=== PATIENT | male | born 1960 | race African-American/Black ===

== ENCOUNTER 2020-01-09 20:29 | Inpatient (IN) | payer OTHER ==
[~2020-01-09] VITALS: Ht 176.5 cm; Wt 114.8 kg
[2020-01-09] MEDS ORDERED: LABETALOL 5MG/ML SYR 20 MG/4 ML SYRINGE IV ONE (22:30)
[2020-01-09 22:39] LABS: HEMATOCRIT. 40.7 % (42.0-52.0); HEMOGLOBIN. 13.5 g/dL (14.0-18.0); MEAN CORPUSCULAR HEMOGLOBIN 25.7 pg (28.0-32.0); MEAN CORPUSCULAR VOLUME 77.3 fL (80.0-94.0); MEAN PLATELET VOLUME 8.2 fl (7.4-10.4); PLATELET 295 x1000/uL (130-400); RED BLOOD CELL COUNT 5.26 mill/uL (4.7-6.1)
[2020-01-09 22:46] LABS: CHLORIDE 95 mEq/L (98-107)
[2020-01-09 22:49] LABS: INR 1.1; PROTHROMBIN TIME 11.2 sec (9.6-11.0)
[2020-01-09 22:51] LABS: ETHANOL BLOOD < 10 mg/dL
[2020-01-09 22:55] LABS: CREATINE KINASE 89 IU/L (39-308)
[2020-01-09 22:58] LABS: PLATELET ESTIMATE NORMAL
[2020-01-09] MEDS ORDERED: INSULIN REGULAR (HUMULIN R) UD 100 UNITS/ML SYR IV ONE (23:45)
[2020-01-09] MEDS ORDERED: KCL 20MEQ/100ML PREMIX 100 ML IV ONE (23:45)
[2020-01-09] MEDS ORDERED: SODIUM CHLORIDE 0.9% 1,000 ML IV ONE (23:45)
[2020-01-09] MEDS ORDERED: INSULIN REGULAR (HUMULIN R) 300UNITS/3ML IV NR (23:45)
[2020-01-10] VITALS (58 sets, daily range): BP systolic 104–188; BP diastolic 29–108
[2020-01-10 01:48] LABS: CLARITY URINE CLEAR (CLEAR); COLOR URINE YELLOW (YELLOW); KETONES URINE 1+ (NEGATIVE); LEUKOCYTE ESTERASE URINE NEGATIVE (NEGATIVE); NITRITE URINE NEGATIVE (NEGATIVE); OCCULT BLOOD URINE 2+ (NEGATIVE); PROTEIN URINE 3+ (NEGATIVE); SPECIFIC GRAVITY URINE 1.037 (1.005-1.030)
[2020-01-10 01:55] LABS: *AMPHETAMINES SCREEN URINE NEGATIVE (NEGATIVE); *BARBITURATES SCREEN URINE NEGATIVE (NEGATIVE); CANNABINOID URINE SCREEN PRESUMTIVE POSITIVE (NEGATIVE); PHENCYCLIDINE URINE SCREEN NEGATIVE (NEGATIVE)
[2020-01-10 01:56] LABS: *BENZODIAZEPINES SCREEN URINE NEGATIVE (NEGATIVE); *COCAINE SCREEN URINE NEGATIVE (NEGATIVE); METHADONE URINE SCREEN NEGATIVE (NEGATIVE); OPIATES URINE SCREEN PRESUMTIVE POSITIVE (NEGATIVE)
[2020-01-10] MEDS ORDERED: ONDANSETRON HCL 4MG/2ML INJ IV PRN (04:45)
[2020-01-10] MEDS ORDERED: CEFTRIAXONE 1 G PREMIX 50 ML IV SCH (04:45)
[2020-01-10] MEDS ORDERED: DEXTROSE 50% WATER 50ML SYRINGE IV PRN (05:00)
[2020-01-10] MEDS: ACETAMINOPHEN 325MG TABLET PO PRN ×2 (05:18→20:25)
[2020-01-10] MEDS: CLONIDINE 0.1MG TABLET PO PRN ×2 (05:19→16:17)
[2020-01-10] MEDS ORDERED: DOXA1TAB PO (05:36)
[2020-01-10] MEDS ORDERED: LISI-604 PO (05:36)
[2020-01-10] MEDS ORDERED: INSLIS SUBCUT (05:37)
[2020-01-10] MEDS ORDERED: ADENOSINE 3 MG/ML 2ML VIAL IV SCH (06:30)
[2020-01-10] MEDS ORDERED: DILTIAZEM HCL 5MG/ML 5ML VIAL IV ONE ×2 (06:45→08:30)
[2020-01-10] MEDS: BLOOD SUGAR DIAGNOSTIC STRIP TEST SCH ×4 (07:13→21:00)
[2020-01-10] MEDS: INSULIN LISPRO 100 UNITS/ML SUBCUT SCH ×4 (07:17→22:32)
[2020-01-10 08:54] LABS: BASOPHILS % 0.6 % (0.0-2.0); HEMOGLOBIN. 12.9 g/dL (14.0-18.0); LYMPHOCYTES % 13.6 % (20.0-50.0); MEAN CORPUSCULAR HEMOGLOBIN 25.9 pg (28.0-32.0); MEAN CORPUSCULAR VOLUME 76.5 fL (80.0-94.0); MEAN PLATELET VOLUME 8.1 fl (7.4-10.4); NEUTROPHILS % 75.8 % (40.0-76.0); PLATELET 293 x1000/uL (130-400); RED BLOOD CELL COUNT 4.96 mill/uL (4.7-6.1); RED CELL DISTRIBUTION WIDTH 15.8 % (11.6-14.6)
[2020-01-10] MEDS ORDERED: LISINOPRIL 20MG TABLET PO SCH (09:00)
[2020-01-10] MEDS ORDERED: AMLODIPINE 10MG TABLET PO SCH (09:00)
[2020-01-10 09:03] LABS: CHLORIDE 102 mEq/L (98-107)
[2020-01-10 09:10] LABS: LDL CHOLESTEROL 58 mg/dL (5-100)
[2020-01-10 09:11] LABS: HDL CHOLESTEROL 37 mg/dL (40-59)
[2020-01-10] MEDS: ENOXAPARIN 30MG/0.3ML SYR SUBCUT SCH ×2 (10:52→20:25)
[2020-01-10] MEDS: CEFTRIAXONE 1,000 MG in DEXTROSE 5% WATER 50 ML IV SCH (11:49)
[2020-01-10] MEDS: INSULIN GLARGINE UD 100 UNITS/ML SYR SUBCUT SCH ×2 (11:50→22:32)
[2020-01-10] MEDS ORDERED: DILTIAZEM HCL 60MG TABLET PO SCH (12:00)
[2020-01-10] MEDS: DILTIAZEM HCL 90MG TABLET PO SCH ×2 (12:34→18:02)
[2020-01-10] MEDS ORDERED: HYDRALAZINE HCL 100MG TABLET PO NR (18:00)
[2020-01-10] MEDS ORDERED: DILTIAZEM HCL 5MG/ML 5ML VIAL IV NR (19:19)
[2020-01-10] MEDS: DILTIAZEM HCL 125 MG in DEXT 5% WATER 100 ML IV PRN (20:12)
[2020-01-10] MEDS: ATORVASTATIN CALCIUM 40MG TABLET PO SCH (20:25)
[2020-01-10] MEDS: HYDROCODONE/ACETAMINOPHEN 5/325MG TABLET PO PRN (21:05)
[2020-01-10] MEDS: HYDRALAZINE HCL 100MG TABLET PO SCH (22:08)
[2020-01-11] VITALS (67 sets, daily range): BP systolic 93–187; BP diastolic 54–123
[2020-01-11] MEDS: DILTIAZEM HCL 90MG TABLET PO SCH ×5 (00:22→23:24)
[2020-01-11] MEDS: DILTIAZEM HCL 125 MG in DEXT 5% WATER 100 ML IV PRN ×2 (04:02→18:00)
[2020-01-11 05:58] LABS: BASOPHILS % 0.2 % (0.0-2.0); EOSINOPHILS % 0.3 % (0.0-5.0); HEMATOCRIT. 38.6 % (42.0-52.0); HEMOGLOBIN. 12.7 g/dL (14.0-18.0); MEAN CORPUSCULAR HEMOGLOBIN 25.4 pg (28.0-32.0); MEAN CORPUSCULAR VOLUME 77.4 fL (80.0-94.0); MEAN PLATELET VOLUME 8.4 fl (7.4-10.4); MONOCYTES % 11.3 % (2.0-8.0); NEUTROPHILS % 71.2 % (40.0-76.0); PLATELET 280 x1000/uL (130-400); RED BLOOD CELL COUNT 4.99 mill/uL (4.7-6.1); RED CELL DISTRIBUTION WIDTH 15.8 % (11.6-14.6)
[2020-01-11 06:01] LABS: CHLORIDE 98 mEq/L (98-107)
[2020-01-11] MEDS: BLOOD SUGAR DIAGNOSTIC STRIP TEST SCH ×4 (06:49→21:32)
[2020-01-11] MEDS: INSULIN LISPRO 100 UNITS/ML SUBCUT SCH ×4 (06:54→21:48)
[2020-01-11] MEDS: ENOXAPARIN 30MG/0.3ML SYR SUBCUT SCH (09:28)
[2020-01-11] MEDS: LISINOPRIL 40MG TABLET PO SCH (09:28)
[2020-01-11] MEDS: HYDRALAZINE HCL 100MG TABLET PO SCH ×3 (09:28→21:46)
[2020-01-11] MEDS: CEFTRIAXONE 1,000 MG in DEXTROSE 5% WATER 50 ML IV SCH (09:57)
[2020-01-11] MEDS ORDERED: LACTULOSE 20G/30ML UDC PO SCH (10:45)
[2020-01-11] MEDS: INSULIN GLARGINE UD 100 UNITS/ML SYR SUBCUT SCH ×2 (11:30→21:49)
[2020-01-11] MEDS: DOCUSATE SODIUM 100MG CAPSULE PO SCH ×2 (11:32→16:25)
[2020-01-11] MEDS: APIXABAN 5 MG TABLET PO SCH (16:25)
[2020-01-11] MEDS: ACETAMINOPHEN 325MG TABLET PO PRN ×2 (16:38→23:24)
[2020-01-11] MEDS: DIGOXIN 125MCG TABLET PO SCH (18:00)
[2020-01-11] MEDS ORDERED: DILTIAZEM HCL 5MG/ML 5ML VIAL IV PRN (19:15)
[2020-01-11] MEDS: BISACODYL 10MG SUPP PR PRN (19:29)
[2020-01-11] MEDS ORDERED: DILTIAZEM HCL 5MG/ML 5ML VIAL IV SCH (20:00)
[2020-01-11] MEDS: ATORVASTATIN CALCIUM 40MG TABLET PO SCH (21:46)
[2020-01-12] VITALS (78 sets, daily range): BP systolic 103–184; BP diastolic 50–119
[2020-01-12] MEDS: DILTIAZEM HCL 125 MG in DEXT 5% WATER 100 ML IV PRN (01:08)
[2020-01-12 05:40] LABS: BASOPHILS % 0.1 % (0.0-2.0); HEMATOCRIT. 37.5 % (42.0-52.0); HEMOGLOBIN. 12.6 g/dL (14.0-18.0); LYMPHOCYTES % 14.2 % (20.0-50.0); MEAN CORPUSCULAR HEMOGLOBIN 25.7 pg (28.0-32.0); MEAN CORPUSCULAR VOLUME 76.7 fL (80.0-94.0); MONOCYTES % 10.7 % (2.0-8.0); PLATELET 298 x1000/uL (130-400); RED BLOOD CELL COUNT 4.89 mill/uL (4.7-6.1); RED CELL DISTRIBUTION WIDTH 16.2 % (11.6-14.6)
[2020-01-12 05:51] LABS: CHLORIDE 97 mEq/L (98-107)
[2020-01-12] MEDS: HYDRALAZINE HCL 100MG TABLET PO SCH ×3 (06:42→22:24)
[2020-01-12] MEDS: DILTIAZEM HCL 90MG TABLET PO SCH (06:43)
[2020-01-12] MEDS: BLOOD SUGAR DIAGNOSTIC STRIP TEST SCH ×4 (06:54→21:00)
[2020-01-12] MEDS: INSULIN LISPRO 100 UNITS/ML SUBCUT SCH ×4 (07:02→22:25)
[2020-01-12] MEDS: CEFTRIAXONE 1,000 MG in DEXTROSE 5% WATER 50 ML IV SCH (09:11)
[2020-01-12] MEDS: DOCUSATE SODIUM 100MG CAPSULE PO SCH ×2 (09:11→16:43)
[2020-01-12] MEDS: APIXABAN 5 MG TABLET PO SCH ×2 (09:11→16:43)
[2020-01-12] MEDS: LISINOPRIL 40MG TABLET PO SCH (09:12)
[2020-01-12] MEDS: INSULIN GLARGINE UD 100 UNITS/ML SYR SUBCUT SCH ×2 (09:16→22:32)
[2020-01-12] MEDS ORDERED: METFORMIN HCL 500MG TABLET PO NR (10:45)
[2020-01-12] MEDS ORDERED: NA PHOS,M-B/NA PHOS,DI-BA ENEMA 118ML PR NR (11:00)
[2020-01-12] MEDS: ESMOLOL 2500MG PREMIX 250 ML IV SCH ×2 (11:17→19:34)
[2020-01-12] MEDS: OMEPRAZOLE 20MG CAPSULE EXTENDED RELEASE PO SCH (16:44)
[2020-01-12] MEDS: DIGOXIN 125MCG TABLET PO SCH (18:00)
[2020-01-12] MEDS: SODIUM CHLORIDE 0.9% 1,000 ML IV SCH (18:00)
[2020-01-12] MEDS: METFORMIN HCL 500MG TABLET PO SCH (18:03)
[2020-01-12] MEDS: ATORVASTATIN CALCIUM 40MG TABLET PO SCH (22:24)
[2020-01-13] VITALS (50 sets, daily range): BP systolic 90–204; BP diastolic 41–95
[2020-01-13] MEDS: ESMOLOL 2500MG PREMIX 250 ML IV SCH ×3 (00:46→22:03)
[2020-01-13] MEDS: HYDROCODONE/ACETAMINOPHEN 5/325MG TABLET PO PRN (02:57)
[2020-01-13 06:23] LABS: BASOPHILS % 0.5 % (0.0-2.0); EOSINOPHILS % 0.3 % (0.0-5.0); HEMATOCRIT. 35.9 % (42.0-52.0); HEMOGLOBIN. 11.9 g/dL (14.0-18.0); LYMPHOCYTES % 17.4 % (20.0-50.0); MEAN CORPUSCULAR HEMOGLOBIN 25.3 pg (28.0-32.0); MEAN CORPUSCULAR VOLUME 76.7 fL (80.0-94.0); MEAN PLATELET VOLUME 8.1 fl (7.4-10.4); MONOCYTES % 12.6 % (2.0-8.0); NEUTROPHILS % 69.2 % (40.0-76.0); PLATELET 359 x1000/uL (130-400); RED BLOOD CELL COUNT 4.68 mill/uL (4.7-6.1); RED CELL DISTRIBUTION WIDTH 15.8 % (11.6-14.6)
[2020-01-13 06:29] LABS: CHLORIDE 98 mEq/L (98-107)
[2020-01-13] MEDS: HYDRALAZINE HCL 100MG TABLET PO SCH ×3 (06:41→22:00)
[2020-01-13] MEDS: BLOOD SUGAR DIAGNOSTIC STRIP TEST SCH ×4 (07:50→22:01)
[2020-01-13] MEDS: OMEPRAZOLE 20MG CAPSULE EXTENDED RELEASE PO SCH (08:52)
[2020-01-13] MEDS: SODIUM CHLORIDE 0.9% 1,000 ML IV SCH ×2 (08:52→11:11)
[2020-01-13] MEDS: BISACODYL 10MG SUPP PR PRN (08:52)
[2020-01-13] MEDS: METFORMIN HCL 500MG TABLET PO SCH ×2 (08:53→18:40)
[2020-01-13] MEDS: DOCUSATE SODIUM 100MG CAPSULE PO SCH ×2 (08:53→18:43)
[2020-01-13] MEDS: LISINOPRIL 40MG TABLET PO SCH (08:53)
[2020-01-13] MEDS: INSULIN LISPRO 100 UNITS/ML SUBCUT SCH ×4 (08:55→21:00)
[2020-01-13] MEDS: INSULIN GLARGINE UD 100 UNITS/ML SYR SUBCUT SCH ×2 (08:56→22:08)
[2020-01-13] MEDS: APIXABAN 5 MG TABLET PO SCH ×2 (08:59→18:40)
[2020-01-13] MEDS: CEFTRIAXONE 1,000 MG in DEXTROSE 5% WATER 50 ML IV SCH (08:59)
[2020-01-13] MEDS ORDERED: NA PHOS,M-B/NA PHOS,DI-BA ENEMA 118ML PR PRN (12:00)
[2020-01-13] MEDS ORDERED: LACTULOSE 20G/30ML UDC PO NR (12:00)
[2020-01-13] MEDS: LEVOFLOXACIN 500MG PREMIX 100 ML IV SCH (15:28)
[2020-01-13] MEDS: DIGOXIN 125MCG TABLET PO SCH (18:40)
[2020-01-13] MEDS: ATORVASTATIN CALCIUM 40MG TABLET PO SCH (22:06)
[2020-01-14] VITALS (39 sets, daily range): BP systolic 82–159; BP diastolic 37–90
[2020-01-14] MEDS: ESMOLOL 2500MG PREMIX 250 ML IV SCH ×3 (03:01→21:16)
[2020-01-14] MEDS: HYDROCODONE/ACETAMINOPHEN 5/325MG TABLET PO PRN ×4 (03:51→23:12)
[2020-01-14] MEDS: SODIUM CHLORIDE 0.9% 1,000 ML IV SCH (04:30)
[2020-01-14 05:00] LABS: HEMATOCRIT 37.5 % (42.0-52.0); HEMOGLOBIN 12.4 g/dL (14.0-18.0); MEAN CORPUSCULAR HEMOGLOBIN 25.4 pg (28.0-32.0); PLATELET 339 x1000/uL (130-400); RED BLOOD CELL COUNT 4.87 mill/uL (4.7-6.1); RED CELL DISTRIBUTION WIDTH 15.8 % (11.6-14.6)
[2020-01-14 05:35] LABS: CHLORIDE 98 mEq/L (98-107)
[2020-01-14] MEDS: HYDRALAZINE HCL 100MG TABLET PO SCH ×3 (06:24→21:45)
[2020-01-14] MEDS: BLOOD SUGAR DIAGNOSTIC STRIP TEST SCH ×4 (08:15→21:00)
[2020-01-14] MEDS: INSULIN LISPRO 100 UNITS/ML SUBCUT SCH ×4 (08:16→21:00)
[2020-01-14] MEDS: APIXABAN 5 MG TABLET PO SCH ×2 (08:23→17:30)
[2020-01-14] MEDS: DOCUSATE SODIUM 100MG CAPSULE PO SCH ×2 (08:23→17:30)
[2020-01-14] MEDS: METFORMIN HCL 500MG TABLET PO SCH ×2 (08:23→17:30)
[2020-01-14] MEDS: LISINOPRIL 40MG TABLET PO SCH (08:23)
[2020-01-14] MEDS: OMEPRAZOLE 20MG CAPSULE EXTENDED RELEASE PO SCH (08:23)
[2020-01-14] MEDS: INSULIN GLARGINE UD 100 UNITS/ML SYR SUBCUT SCH ×2 (10:03→21:38)
[2020-01-14] MEDS: LEVOFLOXACIN 500MG PREMIX 100 ML IV SCH (12:41)
[2020-01-14] MEDS: DIGOXIN 125MCG TABLET PO SCH (17:30)
[2020-01-14 18:04] LABS: T4 FREE 1.66 ng/dL (0.76-1.46)
[2020-01-14] MEDS: ATORVASTATIN CALCIUM 40MG TABLET PO SCH (21:02)
[2020-01-14] MEDS: DEXT 5%/0.9% NACL 1,000 ML IV SCH (23:08)
[2020-01-15] VITALS (38 sets, daily range): BP systolic 102–188; BP diastolic 30–122
[2020-01-15] MEDS: ESMOLOL 2500MG PREMIX 250 ML IV SCH ×2 (04:28→11:15)
[2020-01-15 05:44] LABS: HEMATOCRIT 35.1 % (42.0-52.0); HEMOGLOBIN 11.7 g/dL (14.0-18.0); MEAN CORPUSCULAR HEMOGLOBIN 25.4 pg (28.0-32.0); MEAN CORPUSCULAR VOLUME 76.1 fL (80.0-94.0); PLATELET 392 x1000/uL (130-400); RED BLOOD CELL COUNT 4.62 mill/uL (4.7-6.1); RED CELL DISTRIBUTION WIDTH 15.3 % (11.6-14.6)
[2020-01-15 05:49] LABS: CHLORIDE 103 mEq/L (98-107)
[2020-01-15] MEDS: HYDRALAZINE HCL 100MG TABLET PO SCH ×3 (06:00→21:34)
[2020-01-15] MEDS: BLOOD SUGAR DIAGNOSTIC STRIP TEST SCH ×3 (07:50→21:24)
[2020-01-15] MEDS: OMEPRAZOLE 20MG CAPSULE EXTENDED RELEASE PO SCH (07:50)
[2020-01-15] MEDS: METFORMIN HCL 500MG TABLET PO SCH (08:20)
[2020-01-15] MEDS: INSULIN LISPRO 100 UNITS/ML SUBCUT SCH ×4 (08:20→21:00)
[2020-01-15] MEDS: APIXABAN 5 MG TABLET PO SCH (09:00)
[2020-01-15] MEDS: LISINOPRIL 40MG TABLET PO SCH (09:28)
[2020-01-15] MEDS: DOCUSATE SODIUM 100MG CAPSULE PO SCH ×2 (09:28→20:19)
[2020-01-15] MEDS: HYDROCODONE/ACETAMINOPHEN 5/325MG TABLET PO PRN ×3 (09:29→20:32)
[2020-01-15] MEDS: INSULIN GLARGINE UD 100 UNITS/ML SYR SUBCUT SCH ×2 (10:00→22:58)
[2020-01-15] MEDS: LEVOFLOXACIN 500MG TABLET PO SCH (12:10)
[2020-01-15] MEDS ORDERED: LIDOCAINE HCL 1% 20ML VIAL (Pyxis) INJ ONE (15:10)
[2020-01-15] MEDS ORDERED: HEPARIN 1,000 UNITS PREMIX 1,500 ML IV ONE (15:11)
[2020-01-15] MEDS ORDERED: PROPOFOL 200MG/20ML VIAL IV ONE (15:21)
[2020-01-15] MEDS ORDERED: FENTANYL CITRATE/PF 50MCG/ML 2ML VIAL ONE (15:21)
[2020-01-15] MEDS ORDERED: MIDAZOLAM HCL 2 MG/2 ML VIAL ONE (15:21)
[2020-01-15] MEDS ORDERED: PHENYLEPHRINE HCL 10 MG/ML 1ML (IV VIAL) IV ONE (15:21)
[2020-01-15] MEDS ORDERED: SUCCINYLCHOLINE CHLORIDE 200MG/10ML IV ONE (15:21)
[2020-01-15] MEDS ORDERED: CEFAZOLIN SODIUM 1000MG/VIAL ONE (15:21)
[2020-01-15] MEDS ORDERED: ROCURONIUM BROMIDE 10MG/ML VIAL 5ML IV ONE ×2 (15:21→15:25)
[2020-01-15] MEDS ORDERED: NEOSTIGMINE METHYLSULFATE 1MG/ML 10 ML VIAL ONE (15:21)
[2020-01-15] MEDS ORDERED: ONDANSETRON HCL 4MG/2ML INJ ONE (15:21)
[2020-01-15] MEDS ORDERED: METOCLOPRAMIDE HCL 10MG/2ML VIAL ONE (15:21)
[2020-01-15] MEDS ORDERED: SODIUM CHLORIDE 0.9% 10ML VIAL ONE (15:21)
[2020-01-15] MEDS ORDERED: GLYCOPYRROLATE 0.2 MG/ML 2ML VIAL ONE (15:21)
[2020-01-15] MEDS ORDERED: EPHEDRINE SULFATE 50MG/ML VIAL ONE (15:21)
[2020-01-15] MEDS ORDERED: ATROPINE SULFATE 1MG/10ML SYR IV PRN (17:45)
[2020-01-15] MEDS: DEXT 5%/0.9% NACL 1,000 ML IV SCH (20:00)
[2020-01-15] MEDS: ATORVASTATIN CALCIUM 40MG TABLET PO SCH (20:29)
[2020-01-16] VITALS (47 sets, daily range): BP systolic 112–165; BP diastolic 50–114
[2020-01-16 06:10] LABS: BASOPHILS % 0.4 % (0.0-2.0); EOSINOPHILS % 0.5 % (0.0-5.0); HEMATOCRIT. 35.5 % (42.0-52.0); HEMOGLOBIN. 11.7 g/dL (14.0-18.0); LYMPHOCYTES % 25.6 % (20.0-50.0); MEAN CORPUSCULAR HEMOGLOBIN 25.5 pg (28.0-32.0); MEAN CORPUSCULAR VOLUME 77.3 fL (80.0-94.0); MEAN PLATELET VOLUME 7.9 fl (7.4-10.4); MONOCYTES % 9.2 % (2.0-8.0); NEUTROPHILS % 64.3 % (40.0-76.0); PLATELET 410 x1000/uL (130-400); RED BLOOD CELL COUNT 4.59 mill/uL (4.7-6.1); RED CELL DISTRIBUTION WIDTH 15.7 % (11.6-14.6)
[2020-01-16] MEDS: HYDRALAZINE HCL 100MG TABLET PO SCH ×3 (06:14→21:25)
[2020-01-16] MEDS: BLOOD SUGAR DIAGNOSTIC STRIP TEST SCH ×4 (07:33→21:00)
[2020-01-16] MEDS: INSULIN LISPRO 100 UNITS/ML SUBCUT SCH ×4 (07:33→21:47)
[2020-01-16 07:36] LABS: CHLORIDE 104 mEq/L (98-107)
[2020-01-16 07:49] LABS: T4 FREE 1.81 ng/dL (0.76-1.46)
[2020-01-16] MEDS: APIXABAN 5 MG TABLET PO SCH ×2 (08:58→18:02)
[2020-01-16] MEDS: OMEPRAZOLE 20MG CAPSULE EXTENDED RELEASE PO SCH (08:59)
[2020-01-16] MEDS: LISINOPRIL 40MG TABLET PO SCH (08:59)
[2020-01-16] MEDS: METFORMIN HCL 500MG TABLET PO SCH ×2 (08:59→18:02)
[2020-01-16] MEDS: DOCUSATE SODIUM 100MG CAPSULE PO SCH ×2 (08:59→18:02)
[2020-01-16] MEDS: INSULIN GLARGINE UD 100 UNITS/ML SYR SUBCUT SCH ×3 (09:03→21:41)
[2020-01-16] MEDS: DEXT 5%/0.9% NACL 1,000 ML IV SCH (09:03)
[2020-01-16 09:07] LABS: FOLIC ACID (FOLATE) SERUM 7.4 ng/mL (>5.38)
[2020-01-16] MEDS ORDERED: LIDOCAINE HCL/PF 1% 2ML VIAL ONE (09:31)
[2020-01-16] MEDS: LEVOFLOXACIN 500MG TABLET PO SCH (12:07)
[2020-01-16] MEDS ORDERED: BLOO-1465 MT (12:15)
[2020-01-16] MEDS ORDERED: OMEP40CA12 MT (12:15)
[2020-01-16] MEDS ORDERED: ALBU90AE INH (12:15)
[2020-01-16] MEDS ORDERED: INSU100I28 SQ (12:15)
[2020-01-16] MEDS ORDERED: LISI40TA4 MT (12:15)
[2020-01-16] MEDS ORDERED: LEVO500T2 MT (12:15)
[2020-01-16] MEDS ORDERED: METF-414 MT (12:15)
[2020-01-16] MEDS ORDERED: [UNRECOGNIZED DRUG - CODE] MC (12:15)
[2020-01-16] MEDS ORDERED: APIX5TAB MT (12:15)
[2020-01-16] MEDS ORDERED: LANC1COM2 MC (12:15)
[2020-01-16] MEDS ORDERED: LIP40 MT (12:15)
[2020-01-16] MEDS ORDERED: INSLIS SUBCUT (12:15)
[2020-01-16 15:36] LABS: BG BASE EXCESS -0.7 mmol/L (-2.0-2.0); BG CARBOXYHEMOGLOBIN 0.5 % (0.5-1.5); BG DEOXYHEMOGLOBIN 3.6 % (0.0-5.0); BG FRACTION INSPIRED OXYGEN 21; BG HCO3 ACT 22.9 mmol/L (22.0-26.0); BG METHEMOGLOBIN 0.2 % (0.0-1.5); BG OXYGEN SATURATION 96.4 % (92.0-98.5); BG OXYHEMOGLOBIN 95.7 % (94.0-97.0); BG PCO2 34.2 mmHg (35.0-45.0); BG PH 7.443 (7.350-7.450); BG PO2 80.6 mmHg (75.0-100.0); BG SAMPLE SITE RIGHT RADIAL; BG TOTAL HEMOGLOBIN 13.1 g/dL (12.0-18.0); BG VENT MODE ROOM AIR
[2020-01-16] MEDS: METOPROLOL TARTRATE 50MG TABLET PO SCH (18:03)
[2020-01-16] MEDS: ATORVASTATIN CALCIUM 40MG TABLET PO SCH (21:24)
[2020-01-16] MEDS: BISACODYL 10MG SUPP PR PRN (21:51)
[2020-01-17] VITALS (33 sets, daily range): BP systolic 104–179; BP diastolic 50–108
[2020-01-17 04:08] LABS: THYROID PEROXIDASE ANTIBODY < 9 IU/mL (0-34); VITAMIN D 25-OH 24.3 ng/mL (30.0-100.0)
[2020-01-17 05:44] LABS: CHLORIDE 104 mEq/L (98-107); HEMATOCRIT 34.6 % (42.0-52.0); HEMOGLOBIN 11.4 g/dL (14.0-18.0); MEAN CORPUSCULAR HEMOGLOBIN 25.1 pg (28.0-32.0); MEAN CORPUSCULAR VOLUME 76.2 fL (80.0-94.0); PLATELET 442 x1000/uL (130-400); RED BLOOD CELL COUNT 4.55 mill/uL (4.7-6.1); RED CELL DISTRIBUTION WIDTH 15.5 % (11.6-14.6)
[2020-01-17 05:50] LABS: PHOSPHORUS 3.3 mg/dL (2.5-4.9)
[2020-01-17] MEDS: HYDRALAZINE HCL 100MG TABLET PO SCH ×2 (05:57→13:02)
[2020-01-17] MEDS: BLOOD SUGAR DIAGNOSTIC STRIP TEST SCH ×2 (07:00→12:57)
[2020-01-17] MEDS: INSULIN LISPRO 100 UNITS/ML SUBCUT SCH ×2 (07:54→13:02)
[2020-01-17] MEDS: LISINOPRIL 40MG TABLET PO SCH (09:10)
[2020-01-17] MEDS: METFORMIN HCL 500MG TABLET PO SCH (09:10)
[2020-01-17] MEDS: APIXABAN 5 MG TABLET PO SCH (09:10)
[2020-01-17] MEDS: DOCUSATE SODIUM 100MG CAPSULE PO SCH (09:10)
[2020-01-17] MEDS: METOPROLOL TARTRATE 50MG TABLET PO SCH (09:11)
[2020-01-17] MEDS: OMEPRAZOLE 20MG CAPSULE EXTENDED RELEASE PO SCH (09:11)
[2020-01-17] MEDS: LEVOFLOXACIN 500MG TABLET PO SCH (11:32)
[2020-01-17] MEDS ORDERED: LACT10SO7 MT (12:38)
[2020-01-17] MEDS ORDERED: METO-539 MT (12:38)
[2020-01-17] MEDS ORDERED: TRAM50TA94 MT (12:38)
== END 2020-01-17 16:00 | disposition expired | DRG 720 ==
LOC: ER 20:29 → EDBD 20:29 → 5WST 01-10 01:30 → EDBEDREQ 01-10 01:35 → EDBEDREQDT 01-10 01:35 → EDBEDREQTM 01-10 01:35 → ENRESERV 01-10 02:20 → CVICU 01-10 08:58
PROVIDERS: ADMIT Internal Medicine; ATTEND Internal Medicine
DX: A41.9 Sepsis, unspecified organism (principal); I11.0 Hypertensive heart disease with heart failure; I50.33 Acute on chronic diastolic (congestive) heart failure; E11.65 Type 2 diabetes mellitus with hyperglycemia; E66.9 Obesity, unspecified; N39.0 Urinary tract infection, site not specified; D68.59 Other primary thrombophilia; E44.0 Moderate protein-calorie malnutrition; I47.1 Supraventricular tachycardia; E78.5 Hyperlipidemia, unspecified; E87.1 Hypo-osmolality and hyponatremia; I82.402 Acute embolism and thrombosis of unspecified deep veins of left lower extremity; D64.9 Anemia, unspecified; B96.89 Other specified bacterial agents as the cause of diseases classified elsewhere; B96.1 Klebsiella pneumoniae [K. pneumoniae] as the cause of diseases classified elsewhere; G40.909 Epilepsy, unspecified, not intractable, without status epilepticus; E87.8 Other disorders of electrolyte and fluid balance, not elsewhere classified; F12.90 Cannabis use, unspecified, uncomplicated; E78.00 Pure hypercholesterolemia, unspecified; K56.41 Fecal impaction; B35.1 Tinea unguium; M54.9 Dorsalgia, unspecified; I48.20 Chronic atrial fibrillation, unspecified; R06.03 Acute respiratory distress; F14.10 Cocaine abuse, uncomplicated; Z20.828 Contact with and (suspected) exposure to other viral communicable diseases; F99 Mental disorder, not otherwise specified; R94.6 Abnormal results of thyroid function studies; E05.90 Thyrotoxicosis, unspecified without thyrotoxic crisis or storm; Z86.718 Personal history of other venous thrombosis and embolism; Z68.36 Body mass index [BMI] 36.0-36.9, adult; Z87.891 Personal history of nicotine dependence; Z79.01 Long term (current) use of anticoagulants; Z91.14 Patient's other noncompliance with medication regimen; Z79.4 Long term (current) use of insulin; Z79.899 Other long term (current) drug therapy; E11.00 Type 2 diabetes mellitus with hyperosmolarity without nonketotic hyperglycemic-hyperosmolar coma (NKHHC)
CPT/HCPCS: 36415; 36600; 71045; 74018; 80048; 80053; 80061; 80076; 80162; 80305; 80320; 81003; 82010; 82140; 82306; 82375; 82533; 82550; 82607; 82746; 82805; 82962; 83036; 83520; 83605; 83735; 83880; 84100; 84153; 84439; 84443; 84481; 84484; 85025; 85027; 86376; 86850; 86900; 87077; 87186; 87426; 93005; 93306; 93613; 93621; 93653; 93656; 93970; 97116; 97162; 97530; 99291; C1730; C1731; C1732; C1893; J0153; J0330; J0690; J0696; J1644; J1650; J1815; J1956; J2250; J2370; J2405; J2704; J2710; J2765; J3010; J3480; J3490; J7030; J7042; J7060; G0103; G0480